=== PATIENT | female | born 1980 | race Caucasian/White ===

== ENCOUNTER → 2020-12-19 09:39 | Outpatient (BNVA) | payer OTHER, SELFPAY | PROVIDERS: Visit Provider Emergency Medicine | DX: S67.21XA Crushing injury of right hand, initial encounter (principal); S60.10XA Contusion of unspecified finger with damage to nail, initial encounter; W23.0XXA Caught, crushed, jammed, or pinched between moving objects, initial encounter | CPT/HCPCS: 73130 ==